=== PATIENT | female | born 1990 | race Two or more races ===

== ENCOUNTER 2024-02-10 09:10 | Emergency (ER) | payer OTHER ==
[~2024-02-10] VITALS: Ht 162.6 cm; Wt 49.9 kg
[~2024-02-10 09:10] MED LIST: PREVACID15 MG
[2024-02-10] MEDS ORDERED: AMOXICILLIN 500 MG CAPSULE PO ONE (09:45)
[2024-02-10 10:23] LABS: HEMATOCRIT 38.5 % (36.0-45.00); MEAN CORPUSCULAR HEMOGLOBIN 28.8 pg (27.00-32.0); MEAN CORPUSCULAR HGB CONC 33.9 g/dl (32.0-36.0); PLATELET COUNT 466 K/uL (150-450); RED BLOOD COUNT 4.53 M/uL (4.00-6.00); RED CELL DISTRIBUTION WIDTH 14.8 % (11.5-14.5)
[2024-02-10] MEDS ORDERED: AMOX1TAB5 PO (14:40)
[2024-02-10] MEDS ORDERED: DOLOGESIC-DF 51 EACH PO (14:40)
[2024-02-10] MEDS ORDERED: PEPCID AC20 MG PO (14:40)
== END 2024-02-10 14:37 | disposition home or self-care (01) ==
LOC: ER 09:12
PROVIDERS: General Practice
DX: N93.9 Abnormal uterine and vaginal bleeding, unspecified (principal); R10.2 Pelvic and perineal pain; Z91.013 Allergy to seafood